=== PATIENT | female | born 1975 | race Native Hawaiian/Other Pacific Islander ===

== ENCOUNTER 2017-07-14 15:15 | Observation (INO) | payer OTHER ==
[~2017-07-14] VITALS: Ht 157.5 cm; Wt 98.0 kg
[2017-07-14 16:08] VITALS: BP 150/93; TEMP 98.2; Ht 157.5 cm; Wt 98.0 kg
[2017-07-14] MEDS ORDERED: METOPROLOL25 M1 PO (16:21)
[2017-07-14] MEDS ORDERED: LORA0.5T17 PO (16:23)
[2017-07-14] MEDS ORDERED: ASPIR-8181 MG PO (16:23)
[2017-07-14] MEDS ORDERED: TRIATAB14 PO (16:34)
[2017-07-14 16:50] LABS: PLATELET COUNT 376 K/uL (152-353)
[2017-07-14 17:10] LABS: POTASSIUM 3.4 mmol/L (3.6-5.2)
[2017-07-14 20:00] VITALS: BP 113/69; TEMP 98.8
[2017-07-15] VITALS: BP 93/40; TEMP 99
[2017-07-15 04:00] VITALS: BP 96/49; TEMP 99.6
[2017-07-15 04:31] LABS: PLATELET COUNT 314 K/uL (152-353)
[2017-07-15 04:41] LABS: POTASSIUM 3.7 mmol/L (3.6-5.2)
[2017-07-15 08:00] VITALS: BP 105/51; TEMP 98.3
[2017-07-15 12:13] VITALS: BP 124/69; TEMP 98.2
[2017-07-15 16:00] VITALS: BP 101/46; TEMP 98.4
[2017-07-15 19:45] VITALS: BP 149/68; TEMP 97.9
[2017-07-16 00:33] VITALS: BP 150/61; TEMP 97.6
[2017-07-16 04:00] VITALS: BP 135/71; TEMP 98.3
[2017-07-16 06:15] LABS: PLATELET COUNT 298 K/uL (152-353)
[2017-07-16 08:00] VITALS: BP 151/59; TEMP 97.9
[2017-07-16 11:28] VITALS: BP 123/81; TEMP 97.8
== END 2017-07-16 17:10 | disposition home or self-care (01) ==
LOC: MED/SURG 15:15
PROVIDERS: ADMIT Emergency Medicine
DX: J18.8 Other pneumonia, unspecified organism (principal); R05 Cough; I10 Essential (primary) hypertension
CPT/HCPCS: 36415; 80053; 80202; 81000; 83735; 85027; 87040; 87088; 87899; 94640; 94664; 94760; 96365; 96366; 96367; 96374; 99220; G0378; G0379; J1956; J2930; J3370

== ENCOUNTER 2018-03-04 11:22 | Emergency (ER) | payer OTHER ==
[~2018-03-04] VITALS: Ht 157.5 cm; Wt 95.7 kg
[~2018-03-04 11:22] MED LIST: ASPIR-8181 MG PO; LORA0.5T17 PO; METOPROLOL25 M1 PO; TRIATAB14 PO
[2018-03-04 12:05] LABS: PLATELET COUNT 364 K/uL (152-353)
[2018-03-04 12:15] LABS: POTASSIUM 3.9 mmol/L (3.6-5.2)
[2018-03-04 13:12] VITALS: BP 130/84; TEMP 98
== END 2018-03-04 13:12 | disposition home or self-care (01) ==
LOC: ED 11:22
PROVIDERS: Internal Medicine
DX: R20.0 Anesthesia of skin (principal); R20.2 Paresthesia of skin; E83.42 Hypomagnesemia
CPT/HCPCS: 36415; 80053; 81000; 83735; 85027; 99283

== ENCOUNTER 2018-06-19 05:53 | Emergency (ER) | payer OTHER ==
[~2018-06-19] VITALS: Ht 157.5 cm; Wt 96.2 kg
[2018-06-19 05:58] VITALS: TEMP 98.2
[2018-06-19] MEDS ORDERED: TRIA75TA61 PO (06:07)
[2018-06-19] MEDS ORDERED: METFORMIN ER1000 MG PO (06:08)
[2018-06-19 06:47] LABS: PLATELET COUNT 364 K/uL (152-353)
[2018-06-19 06:48] LABS: POTASSIUM 4.2 mmol/L (3.6-5.2)
[2018-06-19 07:50] VITALS: BP 112/74
== END 2018-06-19 07:50 | disposition home or self-care (01) ==
LOC: ED 05:53
PROVIDERS: Family Medicine
DX: N39.0 Urinary tract infection, site not specified (principal)
CPT/HCPCS: 36415; 80053; 81000; 85027; 87088; 96372; 99283; J0696

== ENCOUNTER 2018-12-18 16:10 | Outpatient (CLI) | payer OTHER ==
[~2018-12-18 16:10] MED LIST changes: +METFORMIN ER1000 MG PO; +TRIA75TA61 PO
[2018-12-18 16:41] LABS: PLATELET COUNT 356 K/uL (152-353)
[2018-12-18 16:52] LABS: POTASSIUM 3.4 mmol/L (3.6-5.2)
== END 2018-12-18 19:39 | disposition home or self-care (01) ==
LOC: LABW 16:10
PROVIDERS: Nurse Practitioner
DX: R10.12 Left upper quadrant pain (principal)
CPT/HCPCS: 36415; 80053; 82150; 83690; 85027; 85651; 86038; 86140; 86663; 86665; 86900; 86901

== ENCOUNTER 2018-12-19 08:46 | Outpatient (CLI) | payer OTHER | END 2018-12-19 23:36 | disposition home or self-care (01) | LOC: CT 08:46 | DX: R10.12 Left upper quadrant pain (principal) | CPT/HCPCS: Q9963 ==

== ENCOUNTER 2019-01-29 18:09 | Emergency (ER) | payer OTHER ==
[~2019-01-29] VITALS: Ht 157.5 cm; Wt 90.7 kg
[2019-01-29 18:25] VITALS: TEMP 98.9
[2019-01-29 19:48] VITALS: BP 163/90
== END 2019-01-29 19:49 | disposition home or self-care (01) ==
LOC: ED 18:09
DX: J06.9 Acute upper respiratory infection, unspecified (principal)
CPT/HCPCS: 87502; 87651; 99283

== ENCOUNTER 2022-03-09 14:02 | Outpatient (CLI) | payer OTHER ==
[2022-03-09 14:22] LABS: POTASSIUM 3.5 mmol/L (3.6-5.2)
== END 2022-03-09 19:05 | disposition home or self-care (01) ==
LOC: LABW 14:02
PROVIDERS: ATTEND Nurse Practitioner
DX: R25.2 Cramp and spasm (principal); Z87.898 Personal history of other specified conditions; Z09 Encounter for follow-up examination after completed treatment for conditions other than malignant neoplasm
CPT/HCPCS: 36415; 80053

== ENCOUNTER 2022-08-30 13:58 | Outpatient (CLI) | payer OTHER | END 2022-08-30 20:10 | disposition home or self-care (01) | LOC: RAD 13:58 | PROVIDERS: ATTEND Nurse Practitioner | DX: M54.59 Other low back pain (principal); M25.552 Pain in left hip ==

== ENCOUNTER 2022-10-27 10:37 | Outpatient (CLI) | payer OTHER | END 2022-10-27 19:06 | disposition home or self-care (01) | LOC: MRI 10:37 | PROVIDERS: ATTEND Physician Assistant | DX: M24.152 Other articular cartilage disorders, left hip (principal) | CPT/HCPCS: A9576 ==